=== PATIENT | male | born 1985 | race Caucasian/White ===

== ENCOUNTER 2017-10-27 12:14 | Emergency (ER) | payer BC ==
[~2017-10-27] VITALS: Ht 175.3 cm; Wt 59.1 kg
[2017-10-27 12:15] VITALS: BP 142/70; PULSE 60; RESP 16; TEMP 98.2; O2SAT 97
--- NOTE | 2017-10-27 12:58 | PD ---
HPI Chief Complaint: Pain: Acute or Chronic Time Seen by Provider: 12:46 Travel History International Travel<30 days: No Contact w/Intl Traveler<30days: No Traveled to known affect area: No History of Present Illness HPI patient c/o left sided frontal lisa, over last 2 days, worsening, not relieved with motrin, currently rates it 04/30. patient denies any alleviating/ aggravating factors.....patient denies any assoc factors like fever,n/v/d/cp/ backpain/abdpain/runny nose/cough at this time. all:denies pmhx:denies pshx:denies PFSH Social History Tobacco Use: No Allergies-Medications (Allergen,Severity, Reaction): Coded Allergies: No Known Allergies (Unverified , 10/27/17) Reported Meds & Prescriptions Reported Meds & Active Scripts Active Flexeril (Cyclobenzaprine HCl) 5 Mg Tab 5 Mg PO TID Fioricet (Mznkdrqpfi-Bhzquocfghswn-Yuhlqdpv) 50-300-40 Mg Cap 1-2 Cap PO Q6H PRN Review of Systems Except as stated in HPI: all other systems reviewed are Neg General / Constitutional: No: Fever Eyes: No: Visual changes HENT: Positive: Headaches Cardiovascular: No: Chest Pain or Discomfort Respiratory: No: Shortness of Breath Gastrointestinal: No: Abdominal Pain Genitourinary: No: Dysuria Musculoskeletal: No: Pain Skin: No Rash Neurologic: No: Weakness Psychiatric: No: Depression Endocrine: No: Polydipsia Hematologic/Lymphatic: No: Easy Bruising Physical Exam Narrative GENERAL: SKIN: Warm and dry. HEAD: Atraumatic. Normocephalic. ttpercussion over frontal sinus and maxillary sinus on left side EYES: Pupils equal and round. No scleral icterus. No injection or drainage. ENT: No nasal bleeding or discharge. Mucous membranes pink and moist. NECK: Trachea midline. No JVD. CARDIOVASCULAR: Regular rate and rhythm. RESPIRATORY: No accessory muscle use. Clear to auscultation. Breath sounds equal bilaterally. GASTROINTESTINAL: Abdomen soft, non-tender, nondistended. MUSCULOSKELETAL: Extremities without clubbing, cyanosis, or edema. No obvious deformities. NEUROLOGICAL: Awake and alert. No obvious cranial nerve deficits. Motor grossly within normal limits. Five out of 5 muscle strength in the arms and legs. Normal speech. PSYCHIATRIC: Appropriate mood and affect; insight and judgment normal. Data Data Last Documented VS Vital Signs Date Time Temp Pulse Resp B/P (MAP) Pulse Ox O2 Delivery O2 Flow Rate FiO2 10/27/17 16:01 10/27/17 14:14 18 10/27/17 12:15 98.2 60 97 Room Air Orders Orders Ct Brain W/O Iv Contrast(Rout) (10/27/17 ) Ketorolac Inj (Toradol Inj) (10/27/17 13:00) Ondansetron Odt (Zofran Odt) (10/27/17 13:00) Ed Discharge Order (10/27/17 15:48) MDM Medical Decision Making Medical Screen Exam Complete: Yes Emergency Medical Condition: Yes Medical Record Reviewed: Yes Differential Diagnosis SINUS V TENSION V ICH V LISA Narrative Course CT NEG FOR ICH/MASS OR SINUSITIS... Diagnosis Primary Impression: Headache Qualified Codes: R51 - Headache Patient Instructions: Acute Headache (ED), General Instructions Scripts Cyclobenzaprine (Flexeril) 5 Mg Tab 5 MG PO TID for Muscle Spasm, #15 TAB 0 Refills Prov: Ruben Coulter MD 10/27/17 Qoqdrhmjkf-Xnxpzqwjlayko-Itwnycvk (Fioricet) 50-300-40 Mg Cap 1-2 CAP PO Q6H Y for HEADACHE, #14 CAP 0 Refills Prov: Ruben Coulter MD 10/27/17 Disposition: 01 DISCHARGE HOME Condition: Stable Ruben Coutler MD Oct 27, 2017 12:58
[2017-10-27] MEDS ORDERED: KETOROLAC TROMETHAMINE 60 MG/2 ML (IM) VIAL IM ONE (13:00)
[2017-10-27] MEDS ORDERED: ONDANSETRON ODT 4 MG TAB PO/SL ONE (13:00)
--- NOTE | 2017-10-27 13:59 | RADRPT ---
EXAM DATE/TIME: 10/27/2017 13:50 [facility] COMPARISON: No previous studies available for comparison. INDICATIONS : Left sided facial pain, fever. RADIATION DOSE: 34.98 CTDIvol (mGy) MEDICAL HISTORY : None SURGICAL HISTORY : None. ENCOUNTER: Initial ACUITY: 1 day PAIN SCALE: 6/10 LOCATION: Left facial TECHNIQUE: Multiple contiguous axial images were obtained of the head. Using automated exposure control and adj ustment of the mA and/or kV according to patient size, radiation dose was kept as low as reasonably a chievable to obtain optimal diagnostic quality images. DICOM format image data is available electro nically for review and comparison. FINDINGS: CEREBRUM: The ventricles are normal for age. No evidence of midline shift, mass lesion, hemorrhage or acute in farction. No extra-axial fluid collections are seen. POSTERIOR FOSSA: The cerebellum and brainstem are intact. The 4th ventricle is midline. The cerebellopontine angle i s unremarkable. EXTRACRANIAL: The visualized portion of the orbits is intact. SKULL: The calvaria is intact. No evidence of skull fracture. CONCLUSION: No acute disease. Walter Ibarra MD on October 27, 2017 at 13:57 Board Certified Radiologist. This report was verified electronically.
[2017-10-27 14:14] VITALS: RESP 18
[2017-10-27] MEDS ORDERED: CYCL5TAB PO (15:47)
[2017-10-27] MEDS ORDERED: BUTA1CAP PO (15:47)
== END 2017-10-27 16:05 | disposition home or self-care (01) ==
LOC: NEPD 12:14
DX: R51 Headache (principal)
CPT/HCPCS: 70450; 96372; 99284; J1885